=== PATIENT | female | born 1985 | race Caucasian/White ===

== ENCOUNTER 2025-04-16 18:50 | Emergency (ER) | payer MEDICARE ==
[~2025-04-16] VITALS: Ht 157.5 cm; Wt 70.0 kg
[2025-04-16 18:54] VITALS: O2SAT 100
[2025-04-16] MEDS ORDERED: HALOPERIDOL LACTATE 5MG/ML VIAL IM ONE (19:15)
[2025-04-16] MEDS ORDERED: DIPHENHYDRAMINE 50MG/ML VIAL IM ONE (19:15)
[2025-04-16] MEDS ORDERED: LORAZEPAM 2MG/ML UD SYRINGE IM SCH (19:30)
[2025-04-16] MEDS: DIPHENHYDRAMINE 50MG/ML VIAL IM NR (21:22)
[2025-04-16] MEDS: HALOPERIDOL LACTATE 5MG/ML VIAL IM NR (21:23)
[2025-04-16] MEDS: LORAZEPAM 2MG/ML UD SYRINGE IM SCH (21:23)
[2025-04-16 23:40] LABS: BASOPHILS % 0.7 % (0.0-2.0); EOSINOPHILS % 1.8 % (0.0-5.0); HEMATOCRIT. 32.5 % (36.0-48.0); HEMOGLOBIN. 10.4 g/dL (12.0-16.0); LYMPHOCYTES % 41.8 % (20.0-50.0); MEAN PLATELET VOLUME 7.7 fl (7.4-10.4); MONOCYTES % 6.9 % (2.0-8.0); NEUTROPHILS % 48.8 % (40.0-76.0); PLATELET 361 x1000/uL (130-400); RED BLOOD CELL COUNT 4.10 mill/uL (4.2-5.4); RED CELL DISTRIBUTION WIDTH 16.8 % (11.6-14.6)
[2025-04-16 23:55] LABS: CREATININE 0.6 mg/dL (0.6-1.0); PROTEIN TOTAL 6.8 g/dL (6.0-8.3); UREA NITROGEN BLOOD < 5 mg/dL (9-23)
[2025-04-16 23:56] LABS: ETHANOL BLOOD < 10 mg/dL (<10)
[2025-04-16 23:57] LABS: ASPARTATE AMINOTRANSFERASE 16 IU/L (<34); BILIRUBIN DIRECT 0.2 mg/dL (<=3.0); BILIRUBIN TOTAL 0.6 mg/dL (0.1-1.0)
[2025-04-17] LABS: HCG SCREEN NEGATIVE
[2025-04-17] MEDS: POTASSIUM CHLORIDE 20MEQ TABLET SR PO ONE (00:32)
[2025-04-17] MEDS: MAGNESIUM OXIDE 400MG TABLET PO ONE (00:33)
[2025-04-17 02:06] LABS: CLARITY URINE CLEAR (CLEAR); COLOR URINE YELLOW (YELLOW); GLUCOSE URINE NEGATIVE (NEGATIVE); KETONES URINE NEGATIVE (NEGATIVE); LEUKOCYTE ESTERASE URINE NEGATIVE (NEGATIVE); NITRITE URINE NEGATIVE (NEGATIVE); OCCULT BLOOD URINE NEGATIVE (NEGATIVE); PH URINE 6.0 (4.5-8.0); PROTEIN URINE NEGATIVE (NEGATIVE); SPECIFIC GRAVITY URINE 1.005 (1.005-1.030); UROBILINOGEN URINE 0.2 E.U./dL (0.2-1.0)
[2025-04-17 02:19] LABS: *AMPHETAMINES SCREEN URINE NEGATIVE (NEGATIVE); *BARBITURATES SCREEN URINE NEGATIVE (NEGATIVE); *BENZODIAZEPINES SCREEN URINE NEGATIVE (NEGATIVE); *COCAINE SCREEN URINE NEGATIVE (NEGATIVE); CANNABINOID URINE SCREEN NEGATIVE (NEGATIVE); ECSTASY MDMA SCREEN URINE NEGATIVE (NEGATIVE); METHADONE URINE SCREEN NEGATIVE (NEGATIVE); OPIATES URINE SCREEN NEGATIVE (NEGATIVE); PHENCYCLIDINE URINE SCREEN NEGATIVE (NEGATIVE)
[2025-04-17 10:02] VITALS: BP 118/65; PULSE 70; RESP 19; TEMP 37; O2SAT 99
== END 2025-04-17 10:30 | disposition home or self-care (01) ==
LOC: ER 18:50
DX: Z00.00 Encounter for general adult medical examination without abnormal findings (principal); E87.6 Hypokalemia; E83.42 Hypomagnesemia; D64.9 Anemia, unspecified; Z59.00 Homelessness unspecified; Z79.899 Other long term (current) drug therapy; Z20.822 Contact with and (suspected) exposure to COVID-19
CPT/HCPCS: 80076; 80048; 80307; 80329; 80320; 84703; 83735; 85025; 36415; 96372; 99285; 87426; 80305; 81003; J1200; J1630; J2060; G0480